=== PATIENT | female | born 1965 | race African-American/Black ===

== ENCOUNTER 2020-04-25 13:31 | Inpatient (IN) | payer OTHER ==
--- NOTE | 2020-04-25 14:06 | BHS.RME ---
Substance Use & Tx History - Substance Use History Alcohol Substance amount: 1 pint vodka Frequency of use: Daily Substance route: Oral Date of Last Use: 04/24/20 Marijuana/Hashish Substance amount: 1 joint Frequency of use: Once a month Substance route: Smoking Date of Last Use: 04/18/20 Physical/Psych/Mental Status - Behavior Eye Contact: Normal - Cooperativeness Cooperativeness: Cooperative - Thinking Thought Processes: Tight, Logical, Goal Directed - Physical Health Problems Is patient presently having any pain?: No Does patient presently have any injuries (include location): No Does patient currently have a fever: No Is patient : No CIWA Nausea/Vomitin-No Nausea/No Vomiting Muscle Tremors: None Anxiety: 0-No Anxiety, at Ease Agitation: 0-Normal Activity Paroxysmal Sweats: No Perspiration Orientation: 0-Oriented Tacttile Disturbances: 0-None Auditory Disturbances: 0-None Visual Disturbances: 0-None Headache: 0-None Present CIWA-Ar Total Score: 0
--- NOTE | 2020-04-25 19:43 | HP ---
CIWA Score Nausea/Vomitin-No Nausea/No Vomiting Muscle Tremors: None Anxiety: 4-Mod. Anxious/Guarded Agitation: 4-Moderately Restless Paroxysmal Sweats: No Perspiration Orientation: 0-Oriented Tacttile Disturbances: 0-None Auditory Disturbances: 0-None Visual Disturbances: 0-None Headache: 3-Moderate CIWA-Ar Total Score: 11 - Admission Criteria [facility] Guidelines: Admission for Medically Managed Detox: Requires at least one of the followin. CIWA greater than 12 2. Seizures within the past 24 hours 3. Delirium tremens within the past 24 hours 4. Hallucinations within the past 24 hours 5. Acute intervention needed for co occurring medical disorder 6. Acute intervention needed for co occurring psychiatric disorder 7. Severe withdrawal that cannot be handled at a lower level of care (continued vomiting, continued diarrhea, abnormal vital signs) requiring intravenous medication and/or fluids 8. Patient presents the following: CIWA greater than 12, Acute intervention needed for co-occurring med or psych disorder (ALCOHOL INTOXICATION WITH ONSET OF WITHDRAWAL SX'S. B/P 174/106 P 110) Admission Criteria Met: Admission criteria met Admission ROS [facility] Chief Complaint: HERE FOR ALCOHOL DETOX. C/O WITHDRAWAL SX'S Allergies/Adverse Reactions: Allergies Allergy/AdvReac Type Severity Reaction Status Date / Time No Known Allergies Allergy Verified 04/25/20 14:06 History of Present Illness: 54 Y.O. AAF WITH ALCOHOLISM HERE FOR DETOX, CLIENT IS REFERRED BY [facility]. THIS IS HER FIRST ADMISSION. SHE ALSO REPORTS THIS TO BE HER FIRST ATTEMPT TO DETOX. REPORTS DAILY ALCOHOL INTAKE OF 1 PINT OF VODKA AFTER RELAPSING 1 WEEK AGO. CLIENT REPORTS BEING CLEAN FOR 1 MONTH PRIOR TO RELAPSE. + EYE [employer], DENIES BLACK OUTS AND SEIZURE D/O. ELEVATED B/P 2/2 TO NON COMPLIANCE WITH ANITHYPERTENSIVES 2/2 TO ALCOHOL ABUSE. CLIENT REPORTS LONGEST CLEAN TIME 3 MONTHS. LIVES ALONE, UNEMPLOYED, DENIES LEGALS Exam Limitations: No Limitations - Ebola screening Have you traveled outside of the country in the last 21 days: No Have you had contact with anyone from an Ebola affected area: No Have you been sick,other than usual withdrawal symptoms: No Do you have a fever: No - Review of Systems Constitutional: Loss of Appetite, Night Sweats, Changes in sleep EENT: reports: No Symptoms Reported Respiratory: reports: No Symptoms reported Cardiac: reports: Palpitations GI: reports: Poor Appetite, Poor Fluid Intake : reports: No Symptoms Reported Musculoskeletal: reports: Other (OA) Integumentary: reports: No Symptoms Reported Neuro: reports: Tremors, Unsteady Gait Endocrine: reports: No Symptoms Reported Hematology: reports: Anemia Psychiatric: reports: Orientated x3, Anxious, Depressed (DENIES SI) Other Systems: Reviewed and Negative Patient History - Patient Medical History Hx Anemia: Yes Hx Asthma: No Hx Chronic Obstructive Pulmonary Disease (COPD): No Hx Cancer: No Hx Cardiac Disorders: No Hx Congestive Heart Failure: No Hx Hypertension: Yes Hx Hypercholesterolemia: No Hx Pacemaker: No HX Cerebrovascular Accident: No Hx Seizures: No Hx Dementia: No Hx Diabetes: No Hx Gastrointestinal Disorders: No Hx Liver Disease: Yes (CIRRHOSIS) Hx Genitourinary Disorders: No Hx Sexually Transmitted Disorders: No Hx Renal Disease (ESRD): No Hx Thyroid Disease: No Hx Human Immunodeficiency Virus (HIV): No Hx Hepatitis C: No Hx Depression: Yes ( ZOLOFT) Hx Suicide Attempt: No Hx Bipolar Disorder: No Hx Schizophrenia: No Other Medical History: OA, ANXIETY - Patient Surgical History Past Surgical History: No - PPD History Previous Implant?: Yes Documented Results: Negative w/o proof Implanted On Prior [facility] Admission?: No PPD to be Administered?: Yes - Reproductive History Patient is a Female of Child Bearing Age (11 -55 yrs old): Yes LMP comment: MENAPAUSE Patient : No ([facility] [place]) - Smoking Cessation Smoking history: Never smoked Initiated information on smoking cessation: No - Substance & Tx. History Hx Alcohol Use: Yes Hx Substance Use: Yes Substance Use Type: Alcohol, Marijuana Hx Substance Use Treatment: No - Substances abused Alcohol Other (specify): VODKA Substance route: Oral Frequency: Daily Amount used: 1 PINT Age of first use: 20 Date of last use: 04/25/20 Heroin Substance route: Smoking Frequency: 1-3 times last 30 days Amount used: 1 JOINT Age of first use: 18 Date of last use: 04/23/20 Admission Physical Exam [facility] - Physical General Appearance: Yes: Moderate Distress, Intoxicated, Tremorous, Anxious HEENTM: Yes: EOMI, Normocephalic, Normal Voice, EMILIA, Pharynx Normal Respiratory: Yes: Chest Non-Tender, Lungs Clear, Normal Breath Sounds, No Respiratory Distress, No Accessory Muscle Use Neck: Yes: No masses,lesions,Nodules, Supple, Trachea in good position Breast: Yes: Breasts Symetrical Cardiology: Yes: Regular Rhythm, S1, S2, Tachycardia Abdominal: Yes: Normal Bowel Sounds, Non Tender, Soft, Protuberent Genitourinary: Yes: Within Normal Limits Back: Yes: Normal Inspection Musculoskeletal: Yes: full range of Motion, Other (UNSTEADY GAIT 2/2 OA) Extremities: Yes: Normal Capillary Refill, Normal Range of Motion, Non-Tender, Tremors, Other (SWOLLEN FEET. NON PITTING) Neurological: Yes: Fully Oriented, Alert, Depressed Affect Integumentary: Yes: Dry, Warm Lymphatic: Yes: Within Normal Limits - Diagnostic (1) Alcohol dependence with withdrawal, uncomplicated Current Visit: Yes Status: Acute (2) Cannabis dependence, uncomplicated Current Visit: Yes Status: Acute (3) HTN (hypertension) Current Visit: Yes Status: Chronic Qualifiers: Hypertension type: essential hypertension Qualified Code(s): I10 - Essential (primary) hypertension (4) Non compliance w medication regimen Current Visit: Yes Status: Suspected (5) Depression Current Visit: Yes Status: Chronic (6) Substance induced mood disorder Current Visit: Yes Status: Suspected (7) Cirrhosis of liver Current Visit: Yes Status: Chronic Qualifiers: Hepatic cirrhosis type: alcoholic cirrhosis (8) Anemia Current Visit: Yes Status: Chronic (9) Psoriasis Current Visit: Yes Status: Chronic (10) Gout Current Visit: Yes Status: Chronic Qualifiers: Gout site: toe Laterality: unspecified laterality Cleared for Admission [facility] - Detox or Rehab [facility] Level of Care: Medically Managed Detox Regimen/Protocol: Ativan Claeared for Rehab Admission: No Breathalyzer - Breathalyzer Breathalyzer: 0.162 Urine Drug Screen - Test Device Lot number: [id number] Expiration date: 11/02/21 - Control Is test valid?: Yes - Results Drug screen NEGATIVE: No Urine drug screen results: THC-Marijuana Inpatient Rehab Admission - Rehab Decision to Admit Inpatient rehab admission?: No
[2020-04-25] MEDS ORDERED: LORazepam 1 MG TABLET PO PRN (19:50)
[2020-04-25] MEDS ORDERED: MAGNESIUM HYDROX 2400MG/30ML ORAL SUSPENSION 30 ML CUP PO PRN (19:50)
[2020-04-25] MEDS ORDERED: DICYCLOMINE HCL 10 MG CAPSULE PO PRN (19:50)
[2020-04-25] MEDS ORDERED: BISMUTH SUBSALICYLATE 524 MG/30 ML UD PO PRN (19:50)
[2020-04-25] MEDS ORDERED: METHOCARBAMOL 500 MG TABLET PO PRN (19:50)
[2020-04-25] MEDS ORDERED: hydrOXYzine PAMOATE 25 MG CAPSULE (FP) PO PRN (19:50)
[2020-04-25] MEDS ORDERED: ACETAMINOPHEN 325 MG TABLET (FP) PO PRN ×2 (19:50)
[2020-04-25] MEDS ORDERED: MENTHOL/PHENOL 1 EACH UD MM PRN (19:50)
[2020-04-25] MEDS ORDERED: P-EPHED 60MG/TRIPROLIDI 2.5MG TABLET PO PRN (19:50)
[2020-04-25] MEDS ORDERED: MAGNESIUM CITRATE 300 ML BOTTLE PO PRN (19:50)
[2020-04-25] MEDS ORDERED: guaiFENesin 200 MG/10 ML 10 ML UNIT-DOSE CUPS PO PRN (19:50)
[2020-04-25] MEDS ORDERED: MAG HYDROX/AL HYDROX/SIMETH 30 ML UNIT-DOSE CUP PO PRN (19:50)
[2020-04-25] MEDS ORDERED: IBUPROFEN 400 MG TABLET (FP) PO PRN (19:50)
[2020-04-25] MEDS ORDERED: ONDANSETRON *ODT* 4 MG TABLET SL PRN (19:50)
[2020-04-25] MEDS ORDERED: cloNIDine HCL 0.1 MG TABLET PO ONE (20:20)
[2020-04-25] MEDS ORDERED: cloNIDine HCL 0.1 MG TABLET ONE (20:22)
[2020-04-25] MEDS ORDERED: ONDANSETRON *ODT* 4 MG TABLET ONE (20:24)
[2020-04-25 21:06] VITALS: BMI 25.4
--- OUTSIDE RECORDS SUMMARY | 2020-04-25 21:14 | XMS ---
:1965 Author Organization [facility] Care Team Providers Name Role Phone ANDREY FLETCHER Unavailable Unavailable Re-disclosure Warning The records that you are about to access may contain information from federally- assisted alcohol or drug abuse programs. If such information is present, then the following federally mandated warning applies: This information has been disclosed to you from records protected by federal confidentiality rules (42 CFR part 2). The federal rules prohibit you from making any further disclosure of this information unless further disclosure is expressly permitted by the written consent of the person to whom it pertains or as otherwise permitted by 42 CFR part 2. A general authorization for the release of medical or other information is NOT sufficient for this purpose. The Federal rules restrict any use of the information to criminally investigate or prosecute any alcohol or drug abuse patient.The records that you are about to access may contain highly sensitive health information, the redisclosure of which is protected by Article 27-F of the [facility] Public Health law. If you continue you may haveaccess to information: Regarding HIV / AIDS; Provided by facilities licensed or operated by the [facility] Office of Mental Health; or Provided by the [facility] Office for People With Developmental Disabilities. If such information is present, then the following [facility] mandated warning applies: This information has been disclosed to you from confidential records which are protected by state law. State law prohibits you from making any further disclosure of this information without the specific written consent of the person to whom it pertains, or as otherwise permitted by law. Any unauthorized further disclosure in violation of state law may result in a fine or custodial sentence or both. A general authorization for the release of medical or other information is NOT sufficient authorization for further disclosure. Encounters Encounter Providers Location Date Indications Data Source(s ) Outpatient Attender: ANDREY 12/16/2019 [facility] 04:35:[address] [facility] EDT Patient admitted. Immunizations Vaccine Date Status Description Data Source(s) influenza, 08/31/2016 completed Influenza, 08/31/2016 The In stitute intradermal, 12:00:00 AM Intradermal, Fo r Family quadrivalent, EST Quadrivalent, He alth preservative free Preservative Free Tdap 08/31/2016 completed Tdap 08/31/2016 The Inst itute 12:00:00 AM For Fami ly EST Health Medications Medication Brand Start Product Dose Route Administrative Pharm[facility] Indications Reaction Description Data Name Date Form Instructions Instructions Source(s) Spironolact Spiron 02/15/ 50 mg Oral complet Ascites due Take ONE The one 50 MG olacto 2017 ed to alcoholic table t (50 [place] Oral Tablet ne 50 12:00: cirrhosis mg to ramy) by For Family MG 00 AM (HCC) mouth daily Health Oral EDT Tab Ascites due to alcoholic cirrhosis (HCC) Take ONE tablet (50 mg total) by mouth d aily Triamcinolone TRIAMCINOLONE 09/11/2016 1 Apply completed Rash and Apply 1 The Acetonide 1 ACETONIDE, 12:00:00 AM {application} externally nonspecific application [facility] MG/ML Topical TOP, 0.1 % EST skin topic ally 2 For Family Cream Apply eruption (two) times He alth TRIAMCINOLONE externally a day As ACETONIDE, Cream directed TOP, 0.1 % Apply externally Cream Rash and nonspecific skin eruption Apply 1 application topically 2 (two) ti mes a day As directed Insurance Providers Payer name Policy type Policy ID Covered Covered democrat's Policy P ariana / Coverage democrat ID relationship to Fisher Inf ormation type fisher BEACON [id number] SP [id number] 600 HEALTH STRGY-AFF SLIDING FEE [id number] Self [id number] FREE CARE [id number] Self [id number] Problems, Conditions, and Diagnoses Code Display Name Description Problem Type Effective Data Dates Source(s) R93.2 Abnormal liver Abnormal liver [id number] 05/10/2017 The ultrasound ultrasound 12:00:00 AM [facility] EDT For [facility] I10 Hypertension Hypertension [id number] 10/12/2016 The 12:00:00 AM [place] EDT For [facility] F10.20 Alcoholic Alcoholic [id number] 10/12/2016 The 12:00:00 AM [place] EDT For [facility] Z86.2 History of bleeding History of [id number] 09/01/2016 The disorder bleeding 12:00:00 AM [place] disorder EST For [facility] R21 Rash and Rash and [id number] 08/31/2016 The nonspecific skin nonspecific 12:00:00 AM Instit [facility] [facility] eruption skin eruption EST For [facility] M06.9 Rheumatoid Rheumatoid 37408660 08/31/2016 The arthritis arthritis 12:00:00 AM [place] EST For [facility] F32.9 Depression Depression [id number] 08/31/2016 The 12:00:00 AM [place] EST For [facility] Z00.00 Routine adult Routine adult [id number] 08/31/2016 The health maintenance health 12:00:00 AM Insti tute maintenance EST For [facility] K70.30 Alcoholic cirrhosis Alcoholic [id number] 08/31/2016 The of liver cirrhosis of 12:00:00 AM [place] liver EST For [facility] Transitional Care Transitional Diagnosis 12/16/2019 The Management Outreach Care Management 04:35:13 PM [place] Outreach EDT For [facility] [id number] Ascites due to Diagnosis The alcoholic [place] cirrhosis (HCC) For [facility] [id number] Rash and Diagnosis The nonspecific [facility] skin eruption For [facility] Results ID Date Data Source [id number] 04/17/2020 09:14:00 AM EDT [facility] Name Value Range Interpretation Description Data Sup porting Code Source(s) Document(s ) SARS [facility] Coronavirus 2 RNA Presence Respiratory Specimen DIANDRA Probe Detection This lab was ordered by [facility] and rep orted by [facility]. ID Date Data Source [id number] 03/15/2020 10:15:00 AM EDT [facility] Name Value Range Interpretation Description Data Sup porting Code Source(s) Document(s ) SARS [facility] Coronavirus 2 RNA Presence Respiratory Specimen DIANDRA Probe Detection This lab was ordered by [facility] and rep orted by [facility]. ID Date Data Source [id number] 02/15/2020 09:56:00 AM EDT [facility] Name Value Range Interpretation Description Data Sup porting Code Source(s) Document(s ) SARS [facility] Coronavirus 2 RNA Presence Respiratory Specimen DIANDRA Probe Detection This lab was ordered by [facility] and rep orted by [facility]. ID Date Data Source [id number] 01/29/2020 12:05:00 PM EDT [facility] Name Value Range Interpretation Description Data Sup porting Code Source(s) Document(s ) SARS [facility] Coronavirus 2 RNA Presence Respiratory Specimen DAINDRA Probe Detection This lab was ordered by [facility] and rep orted by [facility]. ID Date Data Source [id number] 01/14/2020 01:58:00 AM EDT [facility] Name Value Range Interpretation Description Data Sup porting Code Source(s) Document(s ) SARS [facility] Coronavirus 2 RNA Presence Respiratory Specimen DIANDRA Probe Detection This lab was ordered by [facility] and rep orted by [facility]. ID Date Data Source [id number] 12/07/2019 01:28:00 PM EDT [facility] Name Value Range Interpretation Description Data Sup porting Code Source(s) Document(s ) [facility] Coronavirus 2 RNA Presence Respiratory Specimen DIANDRA Probe Detection This lab was ordered by [facility] and rep orted by [facility]. Procedure Social History Code Duration Value Status Description Data Source(s ) Alcohol intake 02/15/2017 Current drinker The I nstitute For 12:00:00 AM EDT of alcohol Family He alth (finding) Tobacco use and 02/15/2017 Never used The Insti tute For exposure 12:00:00 AM EDT Family He alth Tobacco smoking 02/15/2017 Never smoker The Ins titute For status NHIS 12:00:00 AM EDT Family H ealth Sex assigned at Not on file Not on file The [facility]
[2020-04-25] MEDS ORDERED: MELATONIN 5 MG TABLETS PO SCH (22:00)
[2020-04-25] MEDS ORDERED: THIAMINE HCL 100 MG TABLET (FP) PO SCH (22:00)
[2020-04-25] MEDS: LORazepam 2 MG TABLET PO SCH (22:27)
[2020-04-26] MEDS: LORazepam 2 MG TABLET PO SCH ×2 (05:53→10:52)
[2020-04-26 09:53] VITALS: BP 135/82; PULSE 120; TEMP 98.2
[2020-04-26] MEDS ORDERED: FUROSEMIDE 20 MG TABLET (FP) PO SCH (10:00)
[2020-04-26] MEDS ORDERED: ALLOPURINOL 100 MG TABLET (FP) PO SCH (10:00)
[2020-04-26] MEDS ORDERED: amLODIPine BESYLATE 5 MG TABLET (FP) PO SCH (10:00)
[2020-04-26] MEDS ORDERED: COLCHICINE 0.6 MG TAB PO SCH (10:00)
[2020-04-26] MEDS ORDERED: PATIENT'S OWN MEDICATION (NON-FORMULARY) (Colchicine [Colchicine] 0.6 MG) PO SCH (10:00)
[2020-04-26] MEDS ORDERED: SPIRONOLACTONE 25 MG TABLET PO SCH (10:00)
[2020-04-26] MEDS ORDERED: PRENATAL VITAMINS W/ FOLIC ACID TABLET (FP) PO SCH (10:00)
[2020-04-26 10:36] LABS: HEMATOCRIT 26.2 % (32.4-45.2); HEMOGLOBIN 8.5 GM/dL (10.7-15.3); MCH 28.5 pg (25.7-33.7); MCHC 32.6 g/dl (32.0-36.0); MEAN CELL VOLUME 87.3 fl (80-96); MEAN PLT VOLUME 8.5 fl (7.5-11.1); PLATELET COUNT 97 K/MM3 (134-434); RDW 20.2 % (11.6-15.6); WHITE BLOOD COUNT 4.9 K/mm3 (4.0-10.0)
[2020-04-26 10:47] LABS: ALBUMIN 2.9 g/dl (3.4-5.0); BILIRUBIN,TOTAL 1.1 mg/dL (0.2-1); BLOOD UREA NITROGEN 26.9 mg/dL (7-18); CALCIUM 8.7 mg/dL (8.5-10.1); CREATININE 1.2 mg/dL (0.55-1.3); POTASSIUM 4.4 mmol/L (3.5-5.1); TOT PROT 6.8 g/dl (6.4-8.2)
--- NOTE | 2020-04-26 10:58 | EKG ---
Test Reason : Blood Pressure : / mmHG Vent. Rate : 117 BPM Atrial Rate : 117 BPM P-R Int : 118 ms QRS Dur : 068 ms QT Int : 328 ms P-R-T Axes : 064 031 049 degrees QTc Int : 457 ms SINUS TACHYCARDIA OTHERWISE NORMAL ECG NO PREVIOUS ECGS AVAILABLE Confirmed by MD Bo, Polo ([id number]) on 04/26/2020 10:58:12 AM Referred By: Confirmed By:Polo Soraino MD
--- NOTE | 2020-04-26 11:48 | DS ---
[facility] Detox Discharge Summary Admission Date: 04/25/20 Discharge Date: 04/26/20 - History Present History: Alcohol Dependence, Cannabis Dependence Additional Comments: alert,oriented x 3 lung clear on auscultation bilaterally ambulation on the unit patient could not continue treatment due to the of the family,signed release ama has all medications at home advice to call 911 if not feeling well Pertinent Past History: anemia cirrhosis of liver - Physical Exam Results Vital Signs: Vital Signs Temperature 98.2 F 04/26/20 08:50 Pulse Rate 120 H 04/26/20 08:50 Respiratory Rate 18 04/26/20 08:50 Blood Pressure 135/82 04/26/20 08:50 O2 Sat by Pulse Oximetry (%) 97 04/26/20 08:50 Pertinent Admission Physical Exam Findings: withdrawal sign and symptom Laboratory Last Values WBC 4.9 K/mm3 (4.0-10.0) 04/26/20 07:00 RBC 3.00 M/mm3 (3.60-5.2) L 04/26/20 07:00 Hgb 8.5 GM/dL (10.7-15.3) L 04/26/20 07:00 Hct 26.2 % (32.4-45.2) L 04/26/20 07:00 MCV 87.3 fl (80-96) 04/26/20 07:00 MCH 28.5 pg (25.7-33.7) 04/26/20 07:00 MCHC 32.6 g/dl (32.0-36.0) 04/26/20 07:00 RDW 20.2 % (11.6-15.6) H 04/26/20 07:00 Plt Count 97 K/MM3 (134-434) L 04/26/20 07:00 MPV 8.5 fl (7.5-11.1) 04/26/20 07:00 Sodium 142 mmol/L (136-145) 04/26/20 07:00 Potassium 4.4 mmol/L (3.5-5.1) 04/26/20 07:00 Chloride 111 mmol/L (98-107) H 04/26/20 07:00 Carbon Dioxide 21 mmol/L (21-32) 04/26/20 07:00 Anion Gap 10 MMOL/L (8-16) 04/26/20 07:00 BUN 26.9 mg/dL (7-18) H 04/26/20 07:00 Creatinine 1.2 mg/dL (0.55-1.3) 04/26/20 07:00 Est GFR (CKD-EPI)AfAm 59.33 04/26/20 07:00 Est GFR (CKD-EPI)NonAf 51.19 04/26/20 07:00 Random Glucose 55 mg/dL (74-106) L 04/26/20 07:00 Calcium 8.7 mg/dL (8.5-10.1) 04/26/20 07:00 Total Bilirubin 1.1 mg/dL (0.2-1) H 04/26/20 07:00 AST 61 U/L (15-37) H 04/26/20 07:00 ALT 24 U/L (13-61) 04/26/20 07:00 Alkaline Phosphatase 135 U/L (45-117) H 04/26/20 07:00 Total Protein 6.8 g/dl (6.4-8.2) 04/26/20 07:00 Albumin 2.9 g/dl (3.4-5.0) L 04/26/20 07:00 POC Urine HCG, Qual Negative 04/25/20 17:13 Syphilis Serology Non-reactive (NONREACTIVE) 04/25/20 07:00 SARS-CoV-2 (PCR) Negative (Negative) 04/25/20 14:30 Vital Signs Temperature 98.2 F 04/26/20 08:50 Pulse Rate 120 H 04/26/20 08:50 Respiratory Rate 18 04/26/20 08:50 Blood Pressure 135/82 04/26/20 08:50 O2 Sat by Pulse Oximetry (%) 97 04/26/20 08:50 - Medication Discharge Medications: Ambulatory Orders Allopurinol [Zyloprim -] 50 mg PO DAILY 04/25/20 Amlodipine Besylate [Norvasc -] 5 mg PO DAILY 04/25/20 Colchicine 0.6 mg PO DAILY 04/25/20 Furosemide 20 mg PO DAILY 04/25/20 Sertraline HCl 50 mg PO DAILY 04/25/20 Spironolactone 50 mg PO DAILY 04/25/20 Thiamine HCl [B-1] 100 mg PO DAILY 04/25/20 - Diagnosis (1) Alcohol dependence with withdrawal, uncomplicated Status: Acute (2) Cannabis dependence, uncomplicated Status: Acute (3) Anemia Status: Chronic (4) Cirrhosis of liver Status: Chronic Qualifiers: Hepatic cirrhosis type: alcoholic cirrhosis (5) Depression Status: Chronic (6) Gout Status: Chronic Qualifiers: Gout site: toe Laterality: unspecified laterality (7) HTN (hypertension) Status: Chronic Qualifiers: Hypertension type: essential hypertension Qualified Code(s): I10 - Essential (primary) hypertension (8) Psoriasis Status: Chronic - AMA Did Patient Leave Against Medical Advice: Yes
--- NOTE | 2020-04-26 11:48 | PN ---
S CIWA - CIWA Score Nausea/Vomitin-Mild Nausea/No Vomiting Muscle Tremors: 2 Anxiety: 2 Agitation: 2 Paroxysmal Sweats: No Perspiration Orientation: 0-Oriented Tacttile Disturbances: 1-Very Mild Itch/Numbness Auditory Disturbances: 0-None Visual Disturbances: 0-None Headache: 2-Mild CIWA-Ar Total Score: 10 S Progress Note (SOAP) Subjective: alert,irritable,anxious,interrupted sleep,tremor,aching pain,nausea,ambulation in the unit Objective: 04/26/20 19:38 Vital Signs Temperature 98.2 F 04/26/20 08:50 Pulse Rate 120 H 04/26/20 08:50 Respiratory Rate 18 04/26/20 08:50 Blood Pressure 135/82 04/26/20 08:50 O2 Sat by Pulse Oximetry (%) 97 04/26/20 08:50 04/26/20 19:38 Laboratory Last Values WBC 4.9 K/mm3 (4.0-10.0) 04/26/20 07:00 RBC 3.00 M/mm3 (3.60-5.2) L 04/26/20 07:00 Hgb 8.5 GM/dL (10.7-15.3) L 04/26/20 07:00 Hct 26.2 % (32.4-45.2) L 04/26/20 07:00 MCV 87.3 fl (80-96) 04/26/20 07:00 MCH 28.5 pg (25.7-33.7) 04/26/20 07:00 MCHC 32.6 g/dl (32.0-36.0) 04/26/20 07:00 RDW 20.2 % (11.6-15.6) H 04/26/20 07:00 Plt Count 97 K/MM3 (134-434) L 04/26/20 07:00 MPV 8.5 fl (7.5-11.1) 04/26/20 07:00 Sodium 142 mmol/L (136-145) 04/26/20 07:00 Potassium 4.4 mmol/L (3.5-5.1) 04/26/20 07:00 Chloride 111 mmol/L (98-107) H 04/26/20 07:00 Carbon Dioxide 21 mmol/L (21-32) 04/26/20 07:00 Anion Gap 10 MMOL/L (8-16) 04/26/20 07:00 BUN 26.9 mg/dL (7-18) H 04/26/20 07:00 Creatinine 1.2 mg/dL (0.55-1.3) 04/26/20 07:00 Est GFR (CKD-EPI)AfAm 59.33 04/26/20 07:00 Est GFR (CKD-EPI)NonAf 51.19 04/26/20 07:00 Random Glucose 55 mg/dL (74-106) L 04/26/20 07:00 Calcium 8.7 mg/dL (8.5-10.1) 04/26/20 07:00 Total Bilirubin 1.1 mg/dL (0.2-1) H 04/26/20 07:00 AST 61 U/L (15-37) H 04/26/20 07:00 ALT 24 U/L (13-61) 04/26/20 07:00 Alkaline Phosphatase 135 U/L (45-117) H 04/26/20 07:00 Total Protein 6.8 g/dl (6.4-8.2) 04/26/20 07:00 Albumin 2.9 g/dl (3.4-5.0) L 04/26/20 07:00 POC Urine HCG, Qual Negative 04/25/20 17:13 Syphilis Serology Non-reactive (NONREACTIVE) 04/25/20 07:00 SARS-CoV-2 (PCR) Negative (Negative) 04/25/20 14:30 Assessment: 04/26/20 19:38 withdrawal symptom Plan: continue detox ativan regimen
[2020-04-27] MEDS ORDERED: LORazepam 1 MG TABLET PO SCH (05:00)
[2020-04-28] MEDS ORDERED: LORazepam 0.5 MG TABLET PO PRN
[2020-04-28] MEDS ORDERED: LORazepam 0.5 MG TABLET PO SCH (05:00)
[2020-04-29] MEDS ORDERED: LORazepam 0.5 MG TABLET PO ONE (05:00)
== END 2020-04-26 13:43 | disposition left against medical advice (07) | DRG 770 ==
LOC: YASAS 13:31 → Y3N 21:01
PROVIDERS: ADMIT Allergy & Immunology; ATTEND Allergy & Immunology
PROC: HZ2ZZZZ Detoxification Services for Substance Abuse Treatment (ICD-10-PCS; principal; 2020-04-25)
DX: F10.230 Alcohol dependence with withdrawal, uncomplicated (principal); F12.20 Cannabis dependence, uncomplicated; F19.24 Other psychoactive substance dependence with psychoactive substance-induced mood disorder; F41.9 Anxiety disorder, unspecified; F32.9 Major depressive disorder, single episode, unspecified; D64.9 Anemia, unspecified; I10 Essential (primary) hypertension; K70.30 Alcoholic cirrhosis of liver without ascites; L40.9 Psoriasis, unspecified; M10.9 Gout, unspecified; Z91.14 Patient's other noncompliance with medication regimen; Z88.8 Allergy status to other drugs, medicaments and biological substances
CPT/HCPCS: 36415; 80053; 81025; 85027; 86780; 93005; 93010; J0735; Q0162; U0003